=== PATIENT | male | born 1970 | race Caucasian/White ===

== ENCOUNTER 2019-05-09 12:19 | Inpatient (IN) | payer OTHER ==
[~2019-05-09] VITALS: Ht 162.6 cm; Wt 81.6 kg
[2019-05-09 12:39] VITALS: BP 183/87
[2019-05-09] MEDS ORDERED: NOHOMEMEDICATIONS (12:42)
[2019-05-09 16:12] LABS: ABSOLUTE LYMPHOCYTES 1.4 thou/uL (0.8-5.3); ABSOLUTE MONOCYTES 0.7 thou/uL (0.0-1.2); ABSOLUTE NEUTROPHILS 8.8 thou/uL (1.6-8.1); BASOPHILS 0.3 %; EOSINOPHILS 0.1 %; HEMATOCRIT 40.3 % (42.0-52.0); HEMOGLOBIN 14.2 gm/dL (14.0-18.0); LYMPHOCYTES 12.4 %; MCH 31.5 pg (26.0-34.0); MCHC 35.2 g/dL (28.0-37.0); MCV 89.5 fL (80.0-100.0); MONOCYTES 6.5 %; MPV 9.3 fl. (7.2-11.1); NUCLEATED RBCS 0 /100WBC; PLATELET COUNT* 201 thou/uL (150-400); POLYS 80.7 %; RBC 4.51 mil/uL (4.50-6.00); RDW-CV 13.1 % (10.5-14.5); WBC 10.9 thou/uL (4.0-11.0)
[2019-05-09 16:16] LABS: CALCIUM 9.8 mg/dL (8.5-10.1); CREATININE 1.1 mg/dL (0.6-1.3); POTASSIUM 3.3 mmol/L (3.5-5.1)
[2019-05-09 16:21] LABS: ALBUMIN 3.9 g/dL (3.4-5.0); TOTAL BILIRUBIN 0.5 mg/dL (<0.1-1.0); TOTAL PROTEIN 8.6 g/dL (6.4-8.2)
[2019-05-09 18:32] VITALS: BP 172/82
[2019-05-09 18:57] VITALS: BP 128/78
--- NOTE | 2019-05-09 19:00 | NUR ---
48 YEAR OLD MALE PT ADMITTED TO ROOM 114 AT 1840 WITH A CALCANEAL FX RESULTING FROM FALLING OFF OF A LADDER AT WORK EARLIER TODAY. PT HAS BEEN SETTLED IN HIS ROOM, INSTRUCTED ON USE OF CALL LIGHT AND BED CONTROLS. PT IS ERITREAN SPEAKING AND USES A PHONE KENDRICK TO COMMUNICATE HIS NEEDS. PT DENIES PAIN AT THIS TIME.
[2019-05-09 20:58] VITALS: BP 184/83
[2019-05-10 04:00] VITALS: BP 169/62
--- NOTE | 2019-05-10 05:12 | NUR ---
PATIENT REQUESTED ONE PAIN MEDICATION AT BEGINNING OF SHIFT. HE SLEPT THROUGH SHIFT AND I WOKE HIM UP TWICE TO ASK IF HE NEEDED PAIN MEDICATION AND HE DECLINED. HE USES URINAL AND CAN COMMUNICATE WITH A HEAD TEACHER KENDRICK ON HIS PHONE. HE HAS NOT REQUESTED ANYTHING MORE FOR PAIN THROUGH THE NIGHT. HIS BLOOD PRESSURE WAS 184/83 AT 2100 SO HE AGREED TO TAKE HIS SCHEDULED LISINOPRIL. WILL CONTINUE TO MONITOR.
[2019-05-10 07:50] VITALS: BP 155/75
[2019-05-10 16:00] VITALS: BP 175/90
--- NOTE | 2019-05-10 18:45 | NUR ---
PATIENT PLEASANT THRU SHIFT. USING KENDRICK ON PHONE FOR TRANSLATION. SEE MAR FOR PAIN CONTROL. USING FWW W/ SBA TO BR. EATING WELL. HRLY ROUNDS DONE. DRSG TO RT FT CDI, WNL. CALL LIGHT IN REACH. ~RUTHIERN
[2019-05-10 19:53] VITALS: BP 176/87
--- NOTE | 2019-05-11 05:31 | NUR ---
PATIENT HAD TYLENOL BEFORE BED BUT DID NOT ASK FOR ANY OTHER PAIN MEDICATION THROUGH THE SHIFT. HE IS ABLE TO AMBULATE TO THE RESTROOM ON OWN USING A WALKER. HE SLEPT THROUGH THE NIGHT PLAN IS TO DISCHARGE PENDING PAIN CONTROL PER DR LOPEZ.
[2019-05-11 08:30] VITALS: BP 149/86
[2019-05-11] MEDS ORDERED: LISINOPRIL20 MG PO (09:49)
[2019-05-11] MEDS ORDERED: TRAMADOL 50 MG50 MG PO (09:49)
[2019-05-11] MEDS ORDERED: HYDROCODON-ACE1 EAC7 PO (09:49)
[2019-05-11 12:35] VITALS: BP 149/86
--- NOTE | 2019-05-11 14:30 | NUR ---
SPOKE WITH PT. HE SPOKE VERY LITTLE INDONESIAN. HE HAD CM TALK INTO KENDRICK ON CELL PHONE AND IT WOULD TRANSLATE TO HIM AND VICE VERSA. HE LIVES WITH A FRIEND. HAS 7 STEPS TO GET INSIDE. HE WOULD LIKE A WALKER AND HAS DECIDED HE DOES WANT A KNEE SCOOTER. INFORMED . SHE SAID TO CHANGE PRESCRIPTION TO WALKER IN PLACE OF [place]. CALLED [employer] [facility] AT [phone]. CLAIM NUMBER IS [id number]. FAXED HIM PRESCRIPTION FOR KNEE SCOOTER AND WALKER, H&P AND ORTHO CONSULT TO [phone]. ASKED IF DME CO.COULD CALL HIM FOR AUTH FOR DME THIS AFTERNOON SINCE IT IS TUESDAY. [employer] CALLED [employer] AND GOT AUTH FOR FWW. GAVE ORDER TO THERAPY AND THEY DISPENSED A WALKER TO PT. CALLED [employer] [facility]. THEY DO NOT WORK WITH [employer]. CALLED [facility]. GAVE HER [employer]'S NUMBER AND CLAIM NUMBER. SHE SAID THEY WOULD WORK ON KNEED SCOOTER AUTH BUT THEY WOULD NEED MEDICAL STENOGRAPHER TO SIGN OFF ON IT SO PT.MIGHT NOT RECEIVE UNTIL TUESDAY. ADJUSTOR ALSO GAVE CM MEMBER ID NUMBER AND BIN NUMBER AND PHARMACY BENEFIT MANAGEMENT NUMBER TO GIVE PT.SO HE CAN GET HIS PRESCIPTIONS FILLED AT PHARMACY OF CHOICE. ALL INFORMATION PUT ON PT.S DISCHARGE INSTRUCTIONS. EXPLAINED TO PT. FRIENDS TO COME PICK HIM UP AROUND 6PM.
[2019-05-11 16:02] VITALS: BP 149/86
--- NOTE | 2019-05-11 17:55 | NUR ---
PATIENT DISCHARGED FROM UNIT AT 1755. ALERT AND ORIENTED X 4. VITAL SIGNS STABLE ON ROOM AIR. NON-WEIGHT BEARING ON RIGHT FOOT. PAIN BEING MANAGED WITH PO MEDICATIONS. DENIES NAUSEA. IV DISCONTINUED. MEDICATION INFORMATION, SCRIPTS, AND DISCHARGE INSTRUCTIONS GIVEN TO PATIENT. LEFT WITH ALL BELONGINGS. PATIENT LEFT WITH FAMILY FRIEND VIA CAR.
== END 2019-05-11 17:55 | disposition home or self-care (01) | DRG 563 ==
LOC: M.ERS 12:19 → M.TBA-ER 15:30 → M.ORTHSURG 15:30
PROVIDERS: Physician Assistant; ADMIT Internal Medicine
PROC: 2W3SX1Z Immobilization of Right Foot using Splint (ICD-10-PCS; principal; 2019-05-10)
DX: S92.021A Displaced fracture of anterior process of right calcaneus, initial encounter for closed fracture (principal); W18.39XA Other fall on same level, initial encounter; S80.02XA Contusion of left knee, initial encounter; S90.32XA Contusion of left foot, initial encounter; S92.101A Unspecified fracture of right talus, initial encounter for closed fracture; I10 Essential (primary) hypertension; Y93.89 Activity, other specified; Y92.89 Other specified places as the place of occurrence of the external cause; Y99.8 Other external cause status

== ENCOUNTER 2019-05-18 14:16 | Emergency (ER) | payer OTHER ==
[~2019-05-18] VITALS: Ht 170.2 cm; Wt 117.9 kg
[~2019-05-18 14:16] MED LIST: HYDROCODON-ACE1 EAC7 PO; LISINOPRIL20 MG PO; NOHOMEMEDICATIONS; TRAMADOL 50 MG50 MG PO
[2019-05-18] MEDS ORDERED: NORCO 5-325 TA1 EAC1 PO (15:03)
[2019-05-18 16:12] VITALS: BP 178/60
== END 2019-05-18 16:13 | disposition home or self-care (01) ==
LOC: M.ERS 14:16
DX: M25.471 Effusion, right ankle (principal); M25.571 Pain in right ankle and joints of right foot; Z76.0 Encounter for issue of repeat prescription